=== PATIENT | female | born 1995 | race Hispanic/Latino ===

== ENCOUNTER 2025-06-20 16:52 | Emergency (ER) | payer OTHER ==
[~2025-06-20] VITALS: Ht 160 cm; Wt 59.1 kg
[2025-06-20 17:32] LABS: BASO # 0.0 10^3/uL (0.0-0.2); BASO % 0.3 % (0.0-1.0); EOS # 0.0 10^3/uL (0.0-0.5); EOS % 0.1 % (0.0-3.0); LYMPH # 1.5 10^3/uL (1.5-5.0); LYMPH % 20.3 % (24.0-44.0); MONO # 0.5 10^3/uL (0.0-0.8); MONO % 7.1 % (2.0-8.0); NEUTROPHILS # 5.2 10^3/uL (1.5-8.5); NEUTROPHILS % 71.8 % (36.0-66.0); PLATELET COUNT, AUTOMATED 279 10^3/uL (150-450)
[2025-06-20 18:05] LABS: ALT/SGPT 16 U/L (7.0-40); AST/SGOT 16 U/L (<34); CALCIUM LEVEL 8.0 MG/DL (8.5-10.1); CARBON DIOXIDE LEVEL 28 MMOL/L (20-31); CHLORIDE LEVEL 106 MMOL/L (98-107); CREATININE FOR GFR 0.49 MG/DL (0.55-1.30); GLOMERULAR FILTRATION RATE > 90.0 (>60); MAGNESIUM LEVEL 2.0 MG/DL (1.8-2.4); POTASSIUM SERUM 3.1 MMOL/L (3.5-5.1); SODIUM LEVEL 144 MMOL/L (136-145)
[2025-06-20 18:06] LABS: FREE T4 1.25 NG/DL (0.89-1.76)
[2025-06-20] MEDS: NS (Normal Saline) 0.9% 1,000 ML IV ONE (18:47)
[2025-06-20 19:52] LABS: KETONE, URINE AUTO RFX NEGATIVE (NEGATIVE); LEUKOCYTE ESTERASE UR AUTO RFX NEGATIVE (NEGATIVE); MUCUS, URINE RFX SMALL (NEGATIVE); NITRITE, URINE AUTO RFX NEGATIVE (NEGATIVE); RBC, URINE AUTO RFX 2 /HPF (0-3); SQUAM EPITHELIAL CELL UR AURFX 2 /HPF (0-6); WBC, URINE AUTO RFX 1 /HPF (0-3)
[2025-06-20 20:12] LABS: AMPHETAMINES LEVEL URINE NEGATIVE (NEGATIVE); BARBITURATES URINE NEGATIVE (NEGATIVE); BENZODIAZEPINES URINE NEGATIVE (NEGATIVE); COCAINE METABOLITE URINE NEGATIVE (NEGATIVE); METHADONE URINE NEGATIVE (NEGATIVE)
[2025-06-20 20:13] LABS: CANNABINOIDS URINE NEGATIVE (NEGATIVE); OPIATES URINE NEGATIVE (NEGATIVE); PHENCYCLIDINE URINE NEGATIVE (NEGATIVE)
[2025-06-20] MEDS ORDERED: EPIN0.3I11 INJ (20:36)
[2025-06-20] MEDS ORDERED: CETI-24 PO (20:36)
[2025-06-20] MEDS ORDERED: LEXA1TAB PO (20:36)
[2025-06-20] MEDS ORDERED: MED REC COMMENT (20:36)
[2025-06-20] MEDS ORDERED: MIRT1TAB PO (20:36)
[2025-06-20] MEDS ORDERED: HOME MED LIST COMPLETE! XX SCH (20:40)
[2025-06-20 20:47] LABS: ETHYL ALCOHOL (ETHANOL) < 0.003 % (0.000-0.010)
[2025-06-20 20:49] LABS: SALICYLATE LEVEL < 3.0 MG/DL (<30)
[2025-06-20] MEDS ORDERED: ACETAMINOPHEN 325 MG TAB As Ordered ONE (21:31)
[2025-06-20] MEDS: ACETAMINOPHEN 325 MG TAB PO ONE (21:46)
[2025-06-21] MEDS: POTASSIUM CHLORIDE 10MEQ SR TABLET PO ONE (12:27)
[2025-06-21 12:30] VITALS: BP 120/60; TEMP 97; O2SAT 99
== END 2025-06-21 12:31 | disposition home or self-care (01) ==
LOC: M ED 16:52 → EDBD 16:52 → M ED 06-21 12:31
DX: J06.9 Acute upper respiratory infection, unspecified (principal); B34.8 Other viral infections of unspecified site; Z91.018 Allergy to other foods; Z79.899 Other long term (current) drug therapy

== ENCOUNTER 2025-06-25 20:40 | Emergency (ER) | payer OTHER ==
[~2025-06-25] VITALS: Ht 160 cm; Wt 60.6 kg
[~2025-06-25 20:40] MED LIST: CETI-24 PO; EPIN0.3I11 INJ; LEXA1TAB PO; MED REC COMMENT; MIRT1TAB PO
[2025-06-25 20:43] VITALS: BP 108/67; TEMP 97.9; O2SAT 98
== END 2025-06-25 23:00 | disposition left against medical advice (07) ==
LOC: M ED 20:40
DX: Z53.21 Procedure and treatment not carried out due to patient leaving prior to being seen by health care provider (principal)